=== PATIENT | male | born 1970 | race Caucasian/White ===

== ENCOUNTER 2018-03-29 09:04 | Emergency (ER) | payer OTHER ==
[~2018-03-29] VITALS: Ht 195.6 cm; Wt 215.9 kg
[2018-03-29 09:06] VITALS: BP 203/94
[2018-03-29] MEDS ORDERED: INSNPH SQ (09:19)
[2018-03-29] MEDS ORDERED: CALC25 PO (09:19)
[2018-03-29] MEDS ORDERED: INSREG SQ (09:19)
[2018-03-29] MEDS ORDERED: CARV6 PO (09:19)
[2018-03-29] MEDS ORDERED: PHOSLOC PO (09:19)
[2018-03-29 09:29] LABS: GLUCOSE,POINT OF CARE 249 MG/DL (70-110)
[2018-03-29] MEDS ORDERED: HEPARIN SODIUM,PORCINE 1,000 UNITS/ML 10 ML VIAL ONE (11:18)
== END 2018-03-29 12:19 | disposition home or self-care (01) ==
LOC: EMS 09:06 → EDBD 09:06 → EMS 12:19
DX: T82.49XA Other complication of vascular dialysis catheter, initial encounter (principal); I12.0 Hypertensive chronic kidney disease with stage 5 chronic kidney disease or end stage renal disease; E11.22 Type 2 diabetes mellitus with diabetic chronic kidney disease; N18.6 End stage renal disease; Z99.2 Dependence on renal dialysis; Z79.4 Long term (current) use of insulin
CPT/HCPCS: 82962; 99283; J1644; 99241